=== PATIENT | female | born 1965 | race African-American/Black ===

== ENCOUNTER 2021-12-08 06:18 | Emergency (ER) | payer SELFPAY ==
[~2021-12-08] VITALS: Ht 152.4 cm; Wt 71.2 kg
[2021-12-08] MEDS ORDERED: ONDANSETRON HCL/PF 4 MG/2 ML VIAL ONE (06:37)
--- NOTE | 2021-12-08 06:59 | NUR ---
PT LIZA 89 FROM HOME C/O TOOK MARIJUANA GUMMIES LAST TIME, WOKE UP FEELING N/V. PT IS A/O X 2-3. RR EVEN UNLABORED. PATIENT TAKEN TO ER BED 15. PT CONNECTED TO MONITORS.
[2021-12-08] MEDS ORDERED: ONDANSETRON HCL/PF 4 MG/2 ML VIAL IVP ONE (07:00)
[2021-12-08] MEDS ORDERED: IV NS 0.9% 1,000 ML BAG IV ONE (07:00)
[2021-12-08 07:09] LABS: BASOPHILS # (AUTO) 0.1 K/uL (0.0-0.2); BASOPHILS % (AUTO) 0.9 % (0.0-2.0); EOSINOPHILS % (AUTO) 0.1 % (0.0-6.0); HEMATOCRIT 37 % (33-45); HEMOGLOBIN 12.1 g/dL (11.5-14.8); LYMPHOCYTES # (AUTO) 1.7 K/uL (0.8-4.8); LYMPHOCYTES % (AUTO) 20.6 % (20.0-44.0); MEAN CORPUSCULAR HGB CONC 33 g/dl (31.0-36.0); MEAN CORPUSCULAR VOLUME 77 fL (82-100); MONOCYTES # (AUTO) 0.6 K/uL (0.1-1.30); NEUTROPHILS % (AUTO) 71.4 % (43.0-81.0); PLATELET COUNT (AUTO) 220 K/uL (150-450); RED BLOOD CELL COUNT(AUTO) 4.86 MIL/uL (4.0-5.2); WHITE BLOOD COUNT (AUTO) 8.4 K/uL (4.3-11.0)
--- NOTE | 2021-12-08 07:25 | NUR ---
SPOKE TO ERNESTINE [phone], SHE IS AVAILABLE TO [facility] WHEN READY
[2021-12-08 07:32] LABS: CALCIUM, SERUM 9.1 mg/dL (8.5-10.1); CREATININE 0.8 mg/dL (0.6-1.3); POTASSIUM 3.9 mmol/L (3.5-5.1)
[2021-12-08 07:39] LABS: ALBUMIN 3.5 g/dL (3.4-5.0); BILIRUBIN,DIRECT 0.1 mg/dL (0.0-0.2); BILIRUBIN,TOTAL 0.9 mg/dL (0.2-1.0); TOTAL PROTEIN, SERUM 7.3 g/dL (6.4-8.2)
[2021-12-08 09:01] LABS: ACETAMINOPHEN < 10 ug/ml (10-30); ALCOHOL, BLOOD < 3 mg/dL (0-0)
[2021-12-08 09:50] LABS: BILIRUBIN,URINE NEGATIVE (NEGATIVE); COLOR,URINE YELLOW (YELLOW); LEUKOCYTE ESTERASE ,URINE TRACE (NEGATIVE); NITRITE, URINE NEGATIVE (NEGATIVE); PROTEIN,URINE NEGATIVE (NEGATIVE); UGLUCOSE >=1000 mg/dL (NEGATIVE); UROBILINOGEN,URINE 0.2 EU/dL (0.2)
[2021-12-08 10:04] LABS: BACTERIA,URINE Rare /HPF (None Seen); RBC,URINE 0-2 /HPF (0-2); YEAST,URINE Few /HPF (None Seen)
--- NOTE | 2021-12-08 10:25 | NUR ---
SS Consult: SS Consult requested for Marijuana Intoxication. The pt. is a 66-year-old female patient who came in to ED for c/o increased anxiousness, confusion, nausea and a few episodes of nonbilious non-bloody vomiting after ingesting multiple marijuana gummies per EMR . Upon SS consult, the pt. is Alert & Oriented x 4 and appears drowsy with slurred speech. The pt. appears well-groomed and presents with and normal mood and affect. The pt. remained calm & cooperative throughout interview. Patients thought process are WNL. Pt. denies current SI/HI and denies hallucinations. RANJIT explored pt.s mental health Hx. Pt. denies any Hx. with mental health issues. Per pt. she is ambulatory & independent with all most of his ADLs and received assistance from family. RANJIT explored pt.s living situation. Per she resides in [place] but she is currently staying at ex-Husbands home. Pt. could not provide address, however, she stated that her ex-husbands , Sana [phone] will be able to pick her up when ready for discharge. RANJIT explored pt.s drug & ETOH use. Pt. denies drug or alcohol use. However, patient stated she took marijuana gummies to help her sleep. SW provided pt. with drug rehab resources and she accepted them. Plan: Raina [phone] will be able to pick her up when ready for discharge back to her ex-husbands home. ADDICTION RESOURCES For Drugs and Alcohol [facility] Substance Abuse Helpline([facility] Outpatient treatment, residential treatment, recovery support for youth and adults [facility] www.actionfamilycounseling.[employer] [facility] Teen programs for drug/alcohol education and support [facility] [employer]. Program for adults, sliding scale provides support and education [place] [employer] www.GILUPIation.org [place]; Outpatient/residential treatment programs; transition to sober living [facility] www.cri-help.org [place]; Outpatient and residential treatment programs; transition to sober living [facility] Victoriano H[place]ron; Outpatient education and supportive programs for teens and adults [place] [facility] www.oasiswomensrecovery.org [place]; Residential treatment and work program for females only [facility] www.[facility]org [place]: Outpatient/residential treatment program for teens and young adults [facility] www.[facility].org [place] Detox, inpatient, outpatient for adults and youth [facility], [facility]. [place]; Outpatient programs and referrals to community residential programs. Alcoholics Anonymous -SFV information and meeting and schedules www.aa-intergroup.org Nb-Ggfy-Nrojxkr https://al-anon.org/ [place] support groups for family of alcoholics. Marijuana Anonymous www.FleetMaticsistrPort[employer] Zoo6.org -SFV listing of meetings Narcotics Anonymous www.na.org SOBER LIVING RESOURCES [facility] www.soberhousing.net A non-profit agency that provides resources to recovery and sober living homes throughout [place], [place], [facility] Sober Living Homes: A Work in Progress[facility], [place] [facility] Victoriano Huitron Womens Sober Living Homes: [facility] x [phone] [place], [place] [facility] Sober Living Homes: [facility]Outpatient [facility] [address] [facility] [place], [place] [address] (Specializes in in-depth psychotherapy for emotional distress: anxiety, depression, interpersonal conflicts, life transitions, childhood abuse) [facility] [address] [place] [address] (Assist with solving problem marital difficulties, separation & divorce, aging parents, & grief, chronic & terminal illness) [facility] [address] [place] [address] (Deal with loss & grief, anxiety, marital difficulties) Homebound/Mental Health Services [address] [facility] [address] [place], [place] [id number] (Provide in-home mental services to people who are incapable of leaving their homes) [facility] of the Elderly [facility] Service[facility] [address] [place] [address] [facility] [address] [place] [address] Mental Health Services [facility] [address] [place] [address] Services: Outpatient therapy for children, teens, young adults, adults, older adults, and families; Psychiatric services, medication support Psychiatric Outpatient Services [facility] Partial Hospitalization and Intensive Outpatient Program ([facility] Care and [place] Only)[address] [facility] [phone] [facility] Partial Hospitalization and Outpatient [id number] [facility] [address] [place], [place] [phone] [facility] Partial Hospitalization and Outpatient [address] [place], [place] [phone] [facility] [id number] [facility] [address] [place], [place] [phone] [facility] Partial Hospitalization and Outpatient [id number] [place], [phone] Crisis and Hotline Telephone Numbers 24-Hour service unless stated [place] Crisis Hotlines: [place] Mental Health/Crisis Line........100.986.1190 Suicide Prevention Center (24 Hours).......179.163.3866 Suicide Prevention Crisis Center.......852.214.4032 (24 Hours) Assaults Against Women Hotline.........517.909.8397 (24 Hours -- [facility] Women and Children Crisis Prison...........760.426.2064 (24 Hours) Child Abuse Hotline............452.223.9405 [facility] (24 Hours)..........766.324.1111 Alcoholics Anonymous (24 Hours)..........135.403.6054 Cocaine Anonymous (24 Hours)............777.617.8491 Narcotics Anonymous (24 Hours)..........[phone] Lisa Guaman [facility] [address], [place], [place] [address]
--- NOTE | 2021-12-08 11:11 | NUR ---
Patient discharged to home in stable condition. Written and verbal after care instructions given. Patient verbalizes understanding of instruction. IV removed. Catheter intact and site benign. Pressure and 4x4 applied to site. No bleeding noted.
[2021-12-08 11:12] VITALS: BP 117/95
== END 2021-12-08 11:12 | disposition home or self-care (01) ==
LOC: ER 06:25
DX: F12.929 Cannabis use, unspecified with intoxication, unspecified (principal); R11.2 Nausea with vomiting, unspecified; R00.0 Tachycardia, unspecified
CPT/HCPCS: 36415; 71045; 80048; 80076; 80143; 80307; 80320; 81001; 82962; 83690; 84703; 85025; 93005; 96361; 96374; 99285; J2405; J7030; G0480